=== PATIENT | female | born 1935 | race Caucasian/White ===

== ENCOUNTER 2017-02-08 10:11 | Emergency (ER) | payer MEDICARE ==
[2017-02-08 11:06] VITALS: BP 131/59
--- NOTE | 2017-02-08 11:23 | UC ---
Respiratory Complaint HPI - HPI Summary HPI Summary: Patient c/o "wheezing" since , states a chest xray was done, and was given an Amoxicillin and an inhaler. Also states she believes it is due to seasonal allergies. Audible wheezing present. SHe is concerned as her wheeze has worsened slightly and she lives alone. [ End ] - History of Current Complaint Chief Complaint: UCRespiratory Stated Complaint: CHEST CONGESTION Time Seen by Provider: 02/08/17 11:21 Hx Obtained From: Patient, Family/Dynamicist ?: No Onset/Duration: Gradual Onset Timing: Constant Severity Initially: Moderate Character: Cough: Nonproductive Aggravating Factors: Exertion Associated Signs And Symptoms: Positive: Wheezing, Nasal Congestion - Allergies/Home Medications Allergies/Adverse Reactions: Allergies Allergy/AdvReac Type Severity Reaction Status Date / Time SEASONAL Allergy Eyes Uncoded 02/08/17 11:06 Itchy/Swollen/Red/Watery Home Medications: Home Medications Omeprazole CAP* [Prilosec CAP* 20 MG] 20 mg PO DAILY 02/08/17 [History Confirmed 02/08/17] PMH/Surg Hx/FS Hx/Imm Hx Previously Healthy: Yes Endocrine History Of: Reports: Thyroid Disease Cardiovascular History Of: Reports: Hypertension Respiratory History Of: Reports: Asthma - Surgical History Surgical History: Yes Surgery Procedure, Year, and Place: CATARACTS & 06/2016, DR. PAL, [facility] - Family History Known Family History: Negative: Cardiac Disease, Hypertension, Diabetes - Social History Occupation: Retired Lives: Alone Alcohol Use: None Substance Use Type: None Smoking Status (MU): Never Smoked Tobacco - Immunization History Most Recent Tetanus Shot: 1997 Review of Systems Constitutional: Fatigue Skin: Negative Eyes: Negative ENT: Negative Respiratory: Cough Cardiovascular: Negative Gastrointestinal: Negative Genitourinary: Negative Motor: Negative Neurovascular: Negative Musculoskeletal: Negative Neurological: Negative Psychological: Negative All Other Systems Reviewed And Are Negative: Yes Physical Exam Triage Information Reviewed: Yes Appearance: Well-Appearing, No Pain Distress, Well-Nourished Vital Signs: Initial Vital Signs Temp 98.3 F 02/08/17 11:00 Pulse 99 02/08/17 11:00 Resp 24 02/08/17 11:00 BP 131/59 02/08/17 11:00 Pulse Ox 97 02/08/17 11:00 Vital Signs Reviewed: Yes Eye Exam: Normal ENT Exam: Normal Dental Exam: Normal Neck exam: Normal Neck: Positive: 1 Respiratory Exam: Normal Respiratory: Positive: Chest non-tender, Wheezing - b/l upper lungs mild expiratory wheeze. Negative: Crackles, Rhonchi, Stridor Cardiovascular Exam: Normal Musculoskeletal Exam: Normal Neurological Exam: Normal Psychological Exam: Normal Skin Exam: Normal UC Diagnostic Evaluation - Laboratory O2 Sat by Pulse Oximetry: 97 Respiratory Course/Dx - Course Course Of Treatment: Per patient she has had medrol in the past and it worked great to reduce her asthma exacerbation. she has no neb at home and advised to get one through PCP if needed. - Differential Dx/Diagnosis Differential Diagnosis/HQI/PQRI: Bronchitis, Laryngitis, Lower Resp Infection, Sinusitis Provider Diagnoses: Asthmatic bronchitis Discharge - Discharge Plan Condition: Good Disposition: HOME Prescriptions: Methylprednisolone [Medrol Dosepak 4 MG*] 0 mg PO .SEE CHIKI INSTRUCTION #1 tab Patient Education Materials: Asthma (ED) Referrals: Jaycee Ramirez MD [Primary Care Provider] - 3 Days
== END 2017-02-08 11:42 | disposition home or self-care (01) ==
LOC: UCCORT 10:11
DX: J45.909 Unspecified asthma, uncomplicated (principal); E07.9 Disorder of thyroid, unspecified; I10 Essential (primary) hypertension; Z98.49 Cataract extraction status, unspecified eye
CPT/HCPCS: 99212; G0463